=== PATIENT | female | born 1995 | race Caucasian/White ===

== ENCOUNTER 2016-11-19 18:04 | Emergency (ER) ==
--- NOTE | 2016-11-19 18:18 | PROVIDER DOCUMENTATION ---
HPI-General Adult - General Chief Complaint: Near Syncope Stated Complaint: OVARIAN CYST Time Seen by Provider: 11/19/16 18:18 Allergies/Adverse Reactions: Patient Allergies Allergy/AdvReac Type Severity Reaction Status Date / Time No Known Allergies Allergy Verified 04/02/15 14:02 Home Medications: Home Medication List Medication Instructions Recorded Confirmed Last Taken Type Clonazepam [Klonopin] 1 mg PO BID 11/19/16 11/19/16 Unknown History Escitalopram Oxalate [Lexapro] 20 mg PO BID 11/19/16 11/19/16 Unknown History Gabapentin [Neurontin] 600 mg PO BID 11/19/16 11/19/16 Unknown History Hydrocodone/APAP 7.5 mg/325 mg 7.5 mg PO BID 11/19/16 11/19/16 Unknown History [[place]-7.5] Ketorolac [Toradol] 10 mg PO Q6H PRN PRN #15 tablet 11/19/16 Unknown Rx Nabumetone 500 mg PO BID 11/19/16 11/19/16 Unknown History - History of Present Illness -Gen Adult Nature of Presenting Problems: Pt has long h/o abdominal pain related to ovarian cysts. Was shopping today and became near syncopal due to abdominal pain similar to prior ovarian cysts, EMS brought to ER and administered morphine 4mg and zofran 4mg due to pain. Currently with decreased pain after treatment. States had nausea and saw dark spots during near syncopal episode that lasted a few minutes. was scheduled to f/u with habitat biologist for control pills to decrease ovarian cysts but never kept appt. Location of Pain/Injury: reports: abdomen Pain Radiation: reports: no radiation Quality of Pain: reports: cramping, throbbing Severity: reports: moderate Onset/Duration: reports: other (chronic pain from chronic ovarian cysts, states "has abdominal pain everyday") Timing: reports: improving Context/Activities at Onset: reports: light activity Modifying Factors: improves with: analgesics Associated Symptoms: reports: dizziness, nausea. denies: back/neck pain, chest pain, constipation, diaphoresis, diarrhea, EENT symptoms, fatigue, genitourinary problems, headaches, heartburn, loss of appetite, malaise, muscle aches, pain with inspiration, vomiting Similar Symptoms Previously?: Yes Recently seen or treated by another doctor?: No Review of Systems - Adult - REVIEW OF SYSTEMS - ADULT Constitutional: denies: chills, fever Eyes: reports: other (spots before eyes). denies: blurred vision, double vision Cardiovascular: reports: no symptoms reported Respiratory: reports: no symptoms reported Gastrointestinal: reports: nausea Genitourinary: reports: see HPI Neurological: denies: numbness, paresthesia All Other Systems: Reviewed and Negative Past History - Adult - PAST MEDICAL HISTORY-ADULT Review of Records: reports: Old Records Reviewed, Nursing Assessment Review, Medications Reviewed, Social history reviewed & non-contributory. Genitourinary: reports: other (ovarian cysts) - PRIOR SURGERIES/PROCEDURES Surgical/Procedure History: reports: - IMMUNIZATION STATUS Childhood Immunizations: See Nurse Assessment Flu Vaccine: See Nurse Assessment - SOCIAL HISTORY Smoking: less than 1 pack/day Provider spent 3-5 mins advising pt. on dangers of tobacco.: Discussed manners to quit use, and f/u contacts for add'l counseling. Living Situation: family Physical Exam-General - PHYSICAL EXAM-ADULT Initial Vital Signs Reviewed: Yes - CONSTITUTIONAL General Appearance: appears well, alert, no apparent distress (was given morphine and zofran by EMS SYSTEMS ANALYST) - EYES Eyes: PERRL/EOMI, pink conjunctivae - HEAD, EARS, NOSE, MOUTH & THROAT HENMT: normocephalic/atraumatic, moist mucous membranes - NECK Neck: non-tender, full range of motion, supple - RESPIRATORY Respiratory: chest non-tender, lungs clear, normal breath sounds - CARDIOVASCULAR Cardiovascular: regular rate, rhythm, no edema - GASTROINTESTINAL (ABDOMEN) Abdominal Exam: normal bowel sounds, soft, tenderness (suprapubic area). negative: guarding, rigid, rebound, hernia, mass - MUSCULOSKELETAL Back Exam: normal inspection, no CVA tenderness, no vertebral tenderness Extremity: normal gait, normal inspection - SKIN Integumentary: normal color, normal turgor, warm/dry - NEUROLOGIC Neurologic: grossly normal, no motor/sensory deficits - PSYCHIATRIC Psych/Mental Status: normal thought content, normal thought process Progress - PLAN OF CARE/RESULTS Progress/Plan/Lab Results: Vital Signs Temp Pulse Resp BP Pulse Ox 11/19/16 18:06 98 F 92 H 18 171/83 92 L No Known Allergies Allergy (Verified 04/02/15 14:02) Clonazepam [Klonopin] 1 mg PO BID 11/19/16 Escitalopram Oxalate [Lexapro] 20 mg PO BID 11/19/16 Gabapentin [Neurontin] 600 mg PO BID 11/19/16 Hydrocodone/APAP 7.5 mg/325 mg [[place]-7.5] 7.5 mg PO BID 11/19/16 Nabumetone 500 mg PO BID 11/19/16 Laboratory 11/19/16 11/19/16 11/19/16 18:43 18:43 18:20 WBC 12.64 H RBC 4.79 Hgb 12.5 Hct 38.0 MCV 79.3 L MCH 26.1 L MCHC 32.9 L RDW Std Deviation 15.6 H Plt Count 406 H MPV 10.1 Immature Gran % (Auto) 0.1 Neut % (Auto) 74.1 Lymph % (Auto) 16.8 L Stevens % (Auto) 7.4 Eos % (Auto) 1.2 Baso % (Auto) 0.4 Immature Gran # (Auto) 0.01 Neut # (Auto) 9.38 H Lymph # (Auto) 2.12 Stevens # (Auto) 0.93 H Eos # (Auto) 0.15 Baso # (Auto) 0.05 Sodium 137 Potassium 4.2 Chloride 103 Carbon Dioxide 24 L Anion Gap 10 BUN 10 Creatinine 0.6 Estimated GFR/1.73 m2 > 60 BUN/Creatinine Ratio 17 Glucose 103 Calculated Osmolality 273 Calcium 8.5 L Total Bilirubin < 0.15 L AST 15 ALT 17 Alkaline Phosphatase 68 Total Protein 6.9 Albumin 4.1 Globulin 3.0 Albumin/Globulin Ratio 1.0 Urine Source CLEAN CATCH Urine Color YELLOW Urine Clarity SL. CLOUDY A Urine pH 5.0 Ur Specific [place] 1.025 Urine Protein TRACE A Urine Ketones 1+(Small) A Urine Blood TRACE Urine Nitrite NEGATIVE Urine Bilirubin NEGATIVE Urine Urobilinogen NORMAL Urine Microscopic RBC <10 Urine WBC TRACE A Urine Microscopic WBC 10-20 A Ur Epithelial Cells >10 A Urine Crystals NONE SEEN Urine Bacteria 1+ Urine Casts NONE SEEN Urine Yeast NONE SEEN Urine Glucose NEGATIVE Orders Category Date Time Status ED: Urine Bedside ORDERED Care 11/19/16 18:09 Active CBC WITH ELECTRONIC DIFF [HEME] Stat Lab 11/19/16 18:43 Completed CMP [COMPREHENSIVE METABOLIC PANEL] [CHEM] Stat Lab 11/19/16 18:[address] W/POSS RFLX CULT [URINALYSIS] Stat Lab 11/19/16 18:20 Completed URINE CULTURE [RM] Routine Lab 11/19/16 18:48 Ordered 0.9% Sodium Chloride Inj [Ns] 1,000 ml Med 11/19/16 18:24 Discontinued IV 999 mls/hr Departure - Departure Time of Disposition Order: 19:38 DIAGNOSIS: Ovarian cyst Qualifiers: Laterality: unspecified laterality Qualified Code(s): N83.209 - Unspecified ovarian cyst, unspecified side Disposition: HOME 01 Certified Medical Emergency: Emergent Condition: Good Additional Instructions: Follow up with habitat biologist for possible hormonal control of ovarian cysts. Do not take Relafen with Toradol (pick one to take for pain) ED Follow Up Instructions: You have been treated by a care provider in the Emergency Department. These instructions are being provided to you so you can have an understanding of how to care for yourself upon discharge. Upon discharge from the Emergency Department, you are responsible for making arrangements for follow-up care by a physician of your choice. Take all prescribed medications as directed. Return to the Emergency Department immediately for any new or worsening symptoms. You may call the Physician Referral phone number at [phone] to obtain a list of Physicians who are taking new patients. Prescriptions: Ketorolac [Toradol] 10 mg PO Q6H PRN PRN #15 tablet PRN Reason: Pain Referrals: Trinity Naqvi [Primary Care Provider] - Jose Brambila MD [STAFF PHYSICIAN] - Attestation - Physician/ JEREL Attestation Patient care was provided by Advanced Practice Provider:: Yes Advanced Practice Provider:: Nasima Stanley Advanced Practice Provider documentation review:: The Mid-level provider documentation, treatment plan and medical decision making was reviewed by the physician who agrees with all treatment and medical decision making by the MLP.
[2016-11-19 18:22] LABS: URINE SOURCE CLEAN CATCH
[2016-11-19] MEDS ORDERED: NS 1,000 ML IV ONE (18:24)
[2016-11-19 18:47] LABS: BILIRUBIN URINE NEGATIVE (NEGATIVE); BLOOD URINE TRACE (NEGATIVE); CLARITY SL. CLOUDY (CLEAR); COLOR YELLOW; GLUCOSE URINE NEGATIVE (NEGATIVE); LEUKOCYTES URINE TRACE (NEGATIVE); NITRITE URINE NEGATIVE (NEGATIVE); PROTEIN URINE TRACE mg/dL (NEGATIVE); SP GRAVITY URINE 1.025; UROBILINOGEN URINE NORMAL
[2016-11-19 18:47] LABS: MANUAL DIFF NEEDED? NO
[2016-11-19 18:48] LABS: URINE CAST NONE SEEN /LPF; URINE CRYSTAL NONE SEEN /HPF; URINE CULTURE PL NEEDED? YES; URINE EPITHELIAL CELLS >10 /HPF (<10); URINE RBC <10 /HPF (<10)
[2016-11-19 18:51] LABS: BASO% 0.4 % (0.0-0.8); EOS# 0.15 X1000 (0.0-0.7); EOS% 1.2 % (0.0-10.0); HEMOGLOBIN 12.5 g/dL (12.0-16.0); IMM GRAN# 0.01 X1000 (0.0-0.04); IMM GRAN% 0.1 % (0.0-0.5); LYMPH# 2.12 X1000 (1.2-3.4); LYMPH% 16.8 % (20.5-51.1); MCH 26.1 PG (27-31); MCHC 32.9 g/dL (33-37); MCV 79.3 FL (81-99); MONO# 0.93 X1000 (0.11-0.59); MONO% 7.4 % (1.7-9.3); MPV 10.1 FL (7.4-10.4); NEUT% 74.1 % (42.2-75.2); PLT 406 X1000 (130-400); RBC 4.79 XMIL (4.2-5.4)
[2016-11-19 19:16] LABS: AGAP 10; ALBUMIN 4.1 g/dL (3.5-5.0); ALKALINE PHOSPHATASE 68 U/L (32-104); BUN 10 mg/dL (8-22); CALCIUM 8.5 mg/dL (8.8-10.2); CHLORIDE 103 mmol/L (98-107); COSMO 273; GOT 15 U/L (10-30); GPT 17 U/L (10-36); POTASSIUM 4.2 mmol/L (3.5-5.1); SODIUM 137 mmol/L (136-145); TCO2 24 mmol/L (25-35); TOTAL BILIRUBIN < 0.15 mg/dL (0.20-1.00); TOTAL PROTEIN 6.9 g/dL (6.3-8.3)
[2016-11-19 20:19] VITALS: BP 132/83
== END 2016-11-19 20:19 | disposition home or self-care (01) ==
LOC: P.ED 18:04
DX: N83.209 Unspecified ovarian cyst, unspecified side (principal); R10.30 Lower abdominal pain, unspecified; G89.29 Other chronic pain; R42 Dizziness and giddiness; R11.0 Nausea; F17.210 Nicotine dependence, cigarettes, uncomplicated; Z71.6 Tobacco abuse counseling; Z79.899 Other long term (current) drug therapy
CPT/HCPCS: 80053; 81001; 82948; 85025; 87088; J7030